=== PATIENT | male | born 1975 | race Two or more races ===

== ENCOUNTER 2022-04-02 15:48 | Emergency (ER) | payer MEDICAID, OTHER ==
[~2022-04-02] VITALS: Ht 188 cm; Wt 113.5 kg
[2022-04-02] MEDS ORDERED: ONDANSETRON HCL 4 MG/2 ML VIAL IV ONE (16:30)
[2022-04-02] MEDS ORDERED: HYDROmorphone HCL 2 MG/ML VL/or syr IV ONE ×2 (16:30→20:15)
[2022-04-02] MEDS ORDERED: SODIUM CHLORIDE 0.9% 1,000 ML IV ONE (16:30)
[2022-04-02 17:12] LABS: Basophils # (auto) 0.1 10 ^3/uL (0-0.2); Basophils % (auto) 0.5 % (0.0-2.0); Eosinophils # (auto) 0.1 10 ^3/uL (0-0.8); Eosinophils % (auto) 0.5 % (0.0-7.0); Hematocrit 51.9 % (41.0-53.0); Lymphocytes # (auto) 2.6 10 ^3/uL (0.4-5.4); Lymphocytes % (auto) 18.4 % (10.0-50.0); Mean Corpuscular Hemoglobin 31.9 pg (28.0-32.0); Mean Corpuscular Hgb Conc. 34.7 g/dL (32.0-36.0); Mean Corpuscular Volume 91.9 fL (80.0-100.0); Monocytes # (auto) 0.8 10 ^3/uL (0-1.3); Monocytes % (auto) 5.6 % (0.0-12.0); Neutrophils # (auto) 10.7 10 ^3/uL (1.6-8.6); Nucleated Red Blood Cells % 0.2 %; Red Blood Cells 5.65 10^6/uL (4.5-5.90); Red Cell Distribution Width 12.4 % (11.8-14.3); White Blood Cell 14.2 10^3/uL (4.4-10.8)
[2022-04-02 17:46] LABS: Albumin 4.1 g/dL (3.4-5.0); Calcium 8.7 mg/dL (8.5-10.1); Potassium 4.1 mmol/L (3.5-5.1)
[2022-04-02 17:49] LABS: BUN/Creatinine Ratio 12.7; Bilirubin, Total 0.7 mg/dL (0.2-1.0); Total Protein 8.3 g/dL (6.4-8.2)
[2022-04-02] MEDS ORDERED: IBUP800T26 PO (20:12)
[2022-04-02] MEDS ORDERED: HYDR-4798 PO (20:12)
[2022-04-02] MEDS ORDERED: ONDA-144 PO (20:12)
[2022-04-02] MEDS ORDERED: TAM04C PO (20:17)
[2022-04-02 20:51] VITALS: BP 151/79
== END 2022-04-02 21:46 | disposition home or self-care (01) ==
LOC: ER 15:54
DX: N20.0 Calculus of kidney (principal)
CPT/HCPCS: 36415; 74176; 80053; 83690; 85025; 96361; 96374; 96375; 96376; 99284; J1170; J2405; J7030